=== PATIENT | female | born 1965 | race Caucasian/White ===

== ENCOUNTER 2016-05-20 11:22 | Emergency (ER) | payer OTHER ==
[~2016-05-20] VITALS: Ht 149.9 cm; Wt 76.7 kg
[2016-05-20 12:21] LABS: HEMATOCRIT 45.2 % (36.0-46.0); MCH 31.2 PG (29.0-34.0); MCHC 32.7 G/DL (30.0-36.0); MCV 95.4 FL (83-99); MEAN PLAT.VOLUME 10.1 uM^3 (9.5-12.4); PLATELET COUNT 370 K/uL (156-360); RBC DIS.WIDTH-CV 13.1 % (11.8-14.6); RBC DIS.WIDTH-SD 46.2 % (39-53); RED BLOOD COUNT 4.74 M/uL (3.80-5.20); WHITE BLOOD COUNT 10.4 K/uL (4.1-10.2)
[2016-05-20 12:30] LABS: CHLORIDE 109 mEq/L (99-109); POTASSIUM 3.8 mEq/L (3.7-5.4); SODIUM 141 mEq/L (136-147)
[2016-05-20 12:32] LABS: D-DIMER ELISA 0.22 mg/L FEU (< 0.57); GLUCOSE 83 mg/dL (70-99)
[2016-05-20 12:34] LABS: ANION GAP 9 MEQ/L (2-14)
[2016-05-20 12:36] LABS: GFR ESTIMATE (CALCULATED) > 59 mL/min/
[2016-05-20 12:37] LABS: UREA NITROGEN (BUN) 13 mg/dL (9-23)
[2016-05-20 12:41] LABS: TROP-I INTERPRETATION NEGATIVE; TROPONIN-I < 0.01 ng/mL (0.0-0.30)
[2016-05-20 12:49] LABS: QUANTITATIVE HCG < 4.0 MIU/ML
[2016-05-20 14:15] LABS: TROP-I INTERPRETATION NEGATIVE; TROPONIN-I < 0.01 ng/mL (0.0-0.30)
[2016-05-20 14:27] VITALS: BP 135/94
== END 2016-05-20 14:28 | disposition home or self-care (01) ==
LOC: EME 11:22
PROVIDERS: Nurse Practitioner Family
DX: R07.89 Other chest pain (principal); R20.2 Paresthesia of skin; Z88.6 Allergy status to analgesic agent
CPT/HCPCS: 70450; 71020; 80048; 84484; 84702; 85027; 85379; 93005; 99281; 99284